=== PATIENT | male | born 1965 | race Caucasian/White ===

== ENCOUNTER → 2025-01-21 09:08 | Outpatient (CLI) | payer OTHER, SELFPAY ==
--- NOTE | 2025-01-21 09:11 | DI.MRI.S_ITS ---
PROCEDURE: MR HEAD/BRAIN WO CON INDICATIONS: Shaunna TIA TECHNIQUE: Noncontrast axial T1 spin echo, axial T2 fast spin echo, sagittal and axial FLAIR, coronal T2 fast spin echo, axial gradient echo, axial diffusion and ADC through the brain. COMPARISON: None. FINDINGS: Image quality: Excellent. CSF Spaces: Basal cisterns are patent. No extra-axial fluid collections. Ventricles are normal in size and shape. Brain: No intracranial masses or hemorrhage. Cornelius/white matter interface is normal. Brainstem appears normal. Diffusion-weighted images demonstrate no acute infarct. No chronic ischemic insults. Normal intravascular flow voids are present. Skull and face: Calvarium has normal marrow signal. Orbits appear normal. Sinuses: Sinuses and mastoids are clear. IMPRESSION: No acute intracranial abnormality. Dictated by: Tiffanie Motley M.D. on 01/23/2025 at 13:12 Approved by: Tiffanie Motley M.D. on 01/23/2025 at 13:14
== END ==
LOC: MRI 09:10
PROVIDERS: PCP Family Medicine; Referring Provider Family Medicine; Visit Provider Family Medicine
DX: G44.59 Other complicated headache syndrome (principal); Z86.73 Personal history of transient ischemic attack (TIA), and cerebral infarction without residual deficits
CPT/HCPCS: 70551